=== PATIENT | male | born 1965 | race Hispanic/Latino ===

== ENCOUNTER 2020-09-23 08:57 | Day surgery (SDC) | payer OTHER ==
[2020-09-23 09:55] LABS: Absolute Lymphocytes (CBC) 2.4 K/uL (0.7-4.9); Basophils % 1.1 % (0-1.3); Hematocrit 32.9 % (39.6-49.0); Lymphocytes % 42.1 % (15.3-44.8); RBC Red Blood Cell Count 3.78 M/uL (4.33-5.43)
[2020-09-23 09:59] LABS: Protime INR 0.87
[2020-09-23] MEDS ORDERED: NA CHLORIDE 0.9% 1,000 ML ONE (10:04)
[2020-09-23 10:44] VITALS: BMI 21.9
[2020-09-23] MEDS ORDERED: FENTANYL CITR 100 MCG/2 ML ONE (11:08)
[2020-09-23] MEDS ORDERED: MIDAZOLAM HCL 2 MG/2 ML INJ ONE (11:08)
[2020-09-23] MEDS ORDERED: NALOXONE 0.4 MG/ML VIAL ONE (11:08)
[2020-09-23] MEDS ORDERED: FLUMAZENIL 0.1 MG/ML (5 mL VIAL) IV ONE (11:17)
--- NOTE | 2020-09-23 12:19 | RAD REPORT ---
EXAM DESCRIPTION: CT - Renal Biopsy CT - 09/23/2020 11:48 am CLINICAL HISTORY: GROSS HEMATURIA/UTI Flank pain COMPARISON: No comparisons FINDINGS: Preoperative diagnosis: Renal failure Post operative diagnosis: Same Conscious Sedation: 45 minutes of IV conscious sedation utilizing fentanyl and midazolam. Patient was continuously monitored by nursing staff. Contrast used: NONE Estimated blood loss: less than 5 mL Specimens: 3 x 18 gauge cores The patient was placed prone on the table and the right flank area was prepped and draped in the usua l sterile fashion. 1% lidocaine was infiltrated into the subcutaneous tissues for local anesthesia. U nder computed tomographic guidance, a 17 gauge introducer was advanced into lower pole right kidney. Subsequently, a 18 gauge, 10 cm long, 20 mm throw core biopsy gun was advanced into the lesion and 3 cores were obtained. Postprocedure imaging demonstrated no complications. Samples were given to pathology for analysis. Th e patient tolerated the procedure without immediate complication and transferred to the recovery room in stable condition. IMPRESSION: Successful nonfocal right renal biopsy under CT guidance. 45 minutes IV conscious sedation was utilized. All CT scans are performed using dose optimization technique as appropriate and may include automated exposure control or mA/KV adjustment according to patient size.
[2020-09-23] MEDS ORDERED: HYDROCODONE/APAP 7.5/325 MG TAB ONE (13:10)
[2020-09-23 14:45] VITALS: BP 119/76; TEMP 98; O2SAT 100
== END 2020-09-23 14:30 | disposition home or self-care (01) ==
LOC: DS 08:57
PROVIDERS: ATTEND Internal Medicine
DX: N18.9 Chronic kidney disease, unspecified (principal); N39.0 Urinary tract infection, site not specified; E11.22 Type 2 diabetes mellitus with diabetic chronic kidney disease; E11.21 Type 2 diabetes mellitus with diabetic nephropathy; I12.9 Hypertensive chronic kidney disease with stage 1 through stage 4 chronic kidney disease, or unspecified chronic kidney disease
CPT/HCPCS: 85025; 36415; 85610; 82947; 88300; 85730; 50200; J2250; J3010; J7030; J2310